=== PATIENT | female | born 2000 | race African-American/Black ===

== ENCOUNTER 2021-08-21 08:46 | Inpatient (IN) ==
[2021-08-21] MEDS ORDERED: METHYLERGONOVINE 0.2 MG/1 ML AMP IM PRN (09:13)
[2021-08-21] MEDS ORDERED: MEPERIDINE 50 MG/1 ML VIAL IV PRN (09:13)
[2021-08-21] MEDS ORDERED: CARBOPROST TROMETHAMINE 250 MCG/ML AMP IM PRN (09:13)
[2021-08-21] MEDS ORDERED: BUTORPHANOL 2 MG/ML VIAL IV PRN (09:13)
[2021-08-21] MEDS ORDERED: TRANEXAMIC ACID 1,000 MG in SODIUM CHLORIDE 0.9% 100 ML IV PRN (09:13)
[2021-08-21] MEDS ORDERED: OXYTOCIN/LR 20 UNIT/1,000 ML BAG IV ONE ×2 (09:13→09:29)
[2021-08-21] MEDS ORDERED: ONDANSETRON 4 MG/2 ML VIAL IV PRN (09:13)
[2021-08-21] MEDS ORDERED: miSOPROStoL 200 MCG TABLET RECTAL PRN (09:13)
[2021-08-21] MEDS ORDERED: AMPICILLIN INJ 2,000 MG in SODIUM CHLORIDE 0.9% 100 ML IV ONE (09:16)
[2021-08-21] MEDS ORDERED: LACTATED RINGERS 1,000 ML IV ONE (09:19)
[2021-08-21] MEDS ORDERED: NALOXONE 0.4 MG/ML VIAL IV PRN (09:19)
[2021-08-21] MEDS ORDERED: hydrOXYzine HCL 25 MG/1 ML VIAL IM PRN (09:19)
[2021-08-21] MEDS ORDERED: FAMOTIDINE 20 MG/2 ML VIAL IV ONE (09:19)
[2021-08-21] MEDS ORDERED: diphenhydrAMINE 50 MG/1 ML VIAL IV PRN ×2 (09:19)
[2021-08-21] MEDS ORDERED: PROMETHAZINE 25 MG/1 ML VIAL IM ONE (09:19)
[2021-08-21] MEDS ORDERED: CITRIC ACID/SODIUM CITRATE 30 ML UDCUP PO ONE (09:19)
[2021-08-21] MEDS ORDERED: ONDANSETRON 4 MG/2 ML VIAL IV ONE (09:19)
[2021-08-21] MEDS ORDERED: ePHEDrine 50 MG/ML VIAL IV PRN (09:19)
[2021-08-21] MEDS ORDERED: SODIUM CHLORIDE 0.9% 0 ML IV ONE (09:29)
[2021-08-21] MEDS ORDERED: CARBOPROST TROMETHAMINE 250 MCG/ML AMP IM ONE (09:29)
[2021-08-21] MEDS ORDERED: TRANEXAMIC ACID 1,000 MG/10 ML VIAL ONE (09:29)
[2021-08-21] MEDS ORDERED: miSOPROStoL 200 MCG TABLET ONE (09:29)
[2021-08-21] MEDS ORDERED: METHYLERGONOVINE 0.2 MG/1 ML AMP ONE (09:29)
[2021-08-21] MEDS ORDERED: fentaNYL 2 MCG/ROPIV 0.2% EPID 100 ML EPIDURAL SCH (09:30)
[2021-08-21] MEDS ORDERED: LACTATED RINGERS 1,000 ML IV SCH ×2 (09:30→11:00)
[2021-08-21] MEDS ORDERED: OXYTOCIN/LR 20 UNIT/1,000 ML BAG IV SCH (09:30)
[2021-08-21] MEDS ORDERED: LIDOCAINE 1% 50 ML VIAL ONE (09:55)
[2021-08-21 09:56] LABS: Basophils % 0.2 % (0.0-0.8); Hematocrit 33.8 VOL% (35.7-47.0); Hemoglobin 10.4 GM/DL (12.0-16.0); Immature Granulocytes % 0.9 %; Immature Granulocytes Absolute 0.15 #; Lymphocytes # 0.9 10*3/uL (1.4-4.0); Lymphocytes % 5.7 % (21.3-54.2); Mean Corpuscular HGB Conc 30.8 GM/DL (32-36); Mean Corpuscular Volume 85.1 FL (87-102); Mean Platelet Volume 11.2 FL (9.6-12.0); Monocytes % 3.9 % (1.7-12.7); Neutrophils % 89.3 % (38.7-73.9); Platelet Count 231 T/CUMM (130-400); Red Blood Count 3.97 MC/CUMM (3.8-5.5); White Blood Count 16.2 T/CUMM (4-12)
[2021-08-21 10:13] LABS: Cord Arterial Blood HCO3 19.3 MMOL/L
[2021-08-21 10:14] LABS: Cord Venous Blood HCO3 22.6 MMOL/L; Cord Venous Blood PCO2 44.7 MMHG; Cord Venous Blood PO2 26.3 MMHG
[2021-08-21] MEDS ORDERED: BISACODYL 10 MG SUPP RECTAL PRN (10:37)
[2021-08-21] MEDS ORDERED: MAGNESIUM HYDROXIDE SUSP 30 ML UDCUP PO PRN (10:37)
[2021-08-21] MEDS ORDERED: IBUPROFEN 800 MG TABLET PO PRN (10:37)
[2021-08-21] MEDS ORDERED: ACETAMINOPHEN 500 MG TABLET PO PRN (10:37)
[2021-08-22] MEDS: DOCUSATE SODIUM 100 MG CAPSULE PO SCH ×3 (00:02→21:14)
[2021-08-22] MEDS: ACETAMINOPHEN/CODEINE 300-30 MG TABLET PO PRN ×3 (00:18→16:56)
[2021-08-22 05:05] LABS: Basophils # 0.1 10*3/uL (0.0-0.2); Basophils % 0.4 % (0.0-0.8); Eosinophils # 0.1 10*3/uL (0.0-0.87); Eosinophils % 0.6 % (0.00-10.9); Hematocrit 30.2 VOL% (35.7-47.0); Hemoglobin 9.3 GM/DL (12.0-16.0); Immature Granulocytes Absolute 0.16 #; Lymphocytes # 2.5 10*3/uL (1.4-4.0); Mean Corpuscular HGB Conc 30.8 GM/DL (32-36); Mean Corpuscular Volume 85.3 FL (87-102); Mean Platelet Volume 12.2 FL (9.6-12.0); Monocytes % 10.1 % (1.7-12.7); Neutrophils % 71.9 % (38.7-73.9); Platelet Count 227 T/CUMM (130-400); Red Blood Count 3.54 MC/CUMM (3.8-5.5); Red Cell Distribution Width 16.9 % (9.3-17.3); White Blood Count 15.5 T/CUMM (4-12)
[2021-08-22] MEDS: MULTIVITAMIN (PRENATAL) TABLET PO SCH (08:26)
[2021-08-23] MEDS: DOCUSATE SODIUM 100 MG CAPSULE PO SCH (09:30)
[2021-08-23] MEDS: MULTIVITAMIN (PRENATAL) TABLET PO SCH (09:30)
[2021-08-23] MEDS ORDERED: DIPH/TET/ACEL PERT BOOSTER VACCINE 0.5 ML VIAL IM ONE (09:35)
[2021-08-23 11:14] VITALS: BP 100/65
== END 2021-08-23 14:15 | disposition home or self-care (01) | DRG 560 ==
LOC: N.LDOUT 08:46 → N.LD 08:48 → N.OB 12:55
PROVIDERS: ADMIT Obstetrics & Gynecology; ATTEND Nurse Practitioner